=== PATIENT | female | born 1990 ===

== ENCOUNTER 2023-10-11 23:38 | Emergency (ER) | payer OTHER ==
[2023-10-12] MEDS ORDERED: Acetaminophen 500 MG TAB ONE (00:22)
[2023-10-12] MEDS ORDERED: Ketorolac Tromethamine 30 MG (1 mL) VIAL ONE (00:22)
== END 2023-10-12 00:49 | disposition home or self-care (01) ==
LOC: ERS 23:38
DX: S42.022A Displaced fracture of shaft of left clavicle, initial encounter for closed fracture (principal); V89.2XXA Person injured in unspecified motor-vehicle accident, traffic, initial encounter
CPT/HCPCS: 71046; 93005; 96374; J1885